=== PATIENT | male | born 1995 | race Caucasian/White ===

== ENCOUNTER 2024-07-21 17:11 | Inpatient (IN) | payer BC, OTHER ==
[~2024-07-21] VITALS: Ht 170.2 cm; Wt 99.8 kg
[2024-07-21 17:51] LABS: BASOPHILS # (AUTO) 0.1 K/UL (0.0-0.2); EOSINOPHILS # (AUTO) 0.2 K/uL (0.0-0.7); EOSINOPHILS % (AUTO) 2.7 % (0.0-7.0); HEMATOCRIT 48.5 % (36.7-47.1); HEMOGLOBIN 15.3 g/dL (12.5-16.3); LYMPHOCYTES # (AUTO) 2.2 K/uL (0.8-4.8); LYMPHOCYTES % (AUTO) 26.7 % (20.5-51.5); MEAN CORPUSCULAR HEMOGLOBIN 22.3 uug (23.8-33.4); MEAN CORPUSCULAR HGB CONC 32 g/dL (32.5-36.3); MEAN CORPUSCULAR VOLUME 70.8 fL (73.0-96.2); MONOCYTES # (AUTO) 0.7 K/uL (0.1-1.30); MONOCYTES % (AUTO) 8.7 % (0.0-11.0); NEUTROPHILS # (AUTO) 5.1 K/uL (1.8-8.9); NEUTROPHILS % (AUTO) 60.9 % (38.5-71.5); PLATELET COUNT (AUTO) 235 K/uL (152-348); RED CELL DISTRIBUTION WIDTH 16.8 % (12.1-16.2); WHITE BLOOD COUNT (AUTO) 8.3 K/uL (3.6-10.2)
[2024-07-21 17:55] LABS: RED BLOOD CELL COUNT(AUTO) 6.86 MIL/uL (4.06-5.63)
[2024-07-21] MEDS ORDERED: METO-357 PO (17:55)
[2024-07-21] MEDS: IV NORMAL SALINE 500 ML BAG IV ONE (17:57)
[2024-07-21 17:59] LABS: CALCIUM 9.5 mg/dL (8.5-10.1); CARBON DIOXIDE 24 mmol/L (21-32); CHLORIDE 107 mmol/L (98-107); GLUCOSE 111 mg/dL (74-106); POTASSIUM 3.8 mmol/L (3.5-5.1); SODIUM SERUM 143 mmol/L (136-145); UREA NITROGEN, BLOOD 12 mg/dL (7-18)
--- NOTE | 2024-07-21 18:01 | NUR ---
PT IS IN ROOM #1B. DR NIELSON EVALUATED THE PT.
[2024-07-21 18:13] LABS: ALANINE AMINOTRANSFERASE 43 U/L (16-63); ALBUMIN 3.6 g/dL (3.4-5.0); ALKALINE PHOSPHATASE 74 U/L (50-136); ASPARTATE AMINOTRANSFERASE 17 U/L (15-37); BILIRUBIN,DIRECT 0.1 mg/dL (0.0-0.2); BILIRUBIN,TOTAL 0.4 mg/dL (0.2-1.0); NT-PRO BNP 66 pg/mL (0-125); TOTAL PROTEIN, SERUM 7.4 g/dL (6.4-8.2)
[2024-07-21] MEDS ORDERED: LORAZEPAM 0.5 MG TABLET ONE (18:49)
[2024-07-21] MEDS ORDERED: HYDROMORPHONE 1 MG/1 ML DISP.SYRIN ONE (18:50)
[2024-07-21] MEDS: LORAZEPAM 0.5 MG TABLET PO ONE (18:56)
[2024-07-21] MEDS: HYDROMORPHONE 1 MG/1 ML DISP.SYRIN IV ONE (18:57)
--- NOTE | 2024-07-21 19:15 | NUR ---
REPORT RECIEVED FROM DALE HECTOR.
--- NOTE | 2024-07-21 20:10 | NUR ---
PT AMB TO BR WITH STEADY GAIT. URINE COLLECTED /SENT TO LAB.
--- NOTE | 2024-07-21 21:30 | NUR ---
REPORT GIVEN TO DALIA HECTOR.
--- NOTE | 2024-07-21 21:40 | NUR ---
Pt. admitted to TELE RM 314 , under care of Dr. JIMÉNEZ Belongs List completed
[2024-07-21] MEDS ORDERED: ONDANSETRON 4 MG/2 ML VIAL IV PRN (21:45)
[2024-07-21] MEDS ORDERED: ACETAMINOPHEN 325 MG TABLET PO PRN (21:45)
[2024-07-21] MEDS ORDERED: LORAZEPAM 0.5 MG TABLET PO PRN (21:45)
[2024-07-21] MEDS ORDERED: TEMAZEPAM 15 MG CAPSULE PO PRN (21:45)
[2024-07-21 22:15] VITALS: BP 114/72; TEMP 97.6; O2SAT 96
--- NOTE | 2024-07-21 22:51 | NUR ---
2146 Admitted patient in tele floor under the care of Dr Villatoro, patient alert oriented, no sob no chest pain, sinus rhythm on tele, patient implanted cardiac loop recorder from [facility], patient admitted due to cardiac arrythmia, no further arrythymia noted, oriented to call lights and to the room. cont to monitor.
[2024-07-22 04:03] VITALS: BP 97/58; TEMP 97.8; O2SAT 97
--- NOTE | 2024-07-22 06:51 | NUR ---
ASLEEP, NO SOB NO CHEST PAIN, NO COMPLAIN OF PAIN, SINUS RHYTHM SINUS ELYSE WHEN ASLEEP, CONT TO MONITOR.
[2024-07-22 07:03] LABS: BASOPHILS # (AUTO) 0.1 K/UL (0.0-0.2); BASOPHILS % (AUTO) 0.7 % (0.0-2.0); DIFFERENTIAL COMMENT 0; EOSINOPHILS # (AUTO) 0.3 K/uL (0.0-0.7); HEMATOCRIT 47.8 % (36.7-47.1); HEMOGLOBIN 15.1 g/dL (12.5-16.3); LYMPHOCYTES # (AUTO) 2.7 K/uL (0.8-4.8); LYMPHOCYTES % (AUTO) 31.9 % (20.5-51.5); MEAN CORPUSCULAR HEMOGLOBIN 22.5 uug (23.8-33.4); MEAN CORPUSCULAR HGB CONC 32 g/dL (32.5-36.3); MEAN CORPUSCULAR VOLUME 71.3 fL (73.0-96.2); MONOCYTES # (AUTO) 0.7 K/uL (0.1-1.30); MONOCYTES % (AUTO) 8.5 % (0.0-11.0); NEUTROPHILS # (AUTO) 4.7 K/uL (1.8-8.9); NEUTROPHILS % (AUTO) 55.9 % (38.5-71.5); PLATELET COUNT (AUTO) 223 K/uL (152-348); RED CELL DISTRIBUTION WIDTH 16.3 % (12.1-16.2); WHITE BLOOD COUNT (AUTO) 8.3 K/uL (3.6-10.2)
[2024-07-22] MEDS: PANTOPRAZOLE SODIUM 40 MG TABLET.DR PO SCH (07:07)
[2024-07-22 07:18] LABS: RED BLOOD CELL COUNT(AUTO) 6.69 MIL/uL (4.06-5.63)
[2024-07-22 07:36] VITALS: BP 122/78; TEMP 98.4; O2SAT 99
[2024-07-22 07:45] LABS: CALCIUM 8.7 mg/dL (8.5-10.1); CREATININE 0.9 mg/dL (0.6-1.3); MAGNESIUM 2.3 mg/dL (1.8-2.4); PHOSPHOROUS 4.2 mg/dL (2.5-4.9); POTASSIUM 4.1 mmol/L (3.5-5.1)
--- NOTE | 2024-07-22 08:00 | NUR ---
RECEIVED PATIENT IN BED AWAKE ALERT AND ORIENTED X3 DENIES PAIN OR SOB. SR ON MONITOR. SEEN BY DR WEEMS SEE NOTES. WILL CONTINUE TELE MONITORING
[2024-07-22] MEDS: METOPROLOL SUCCINATE XL 50 MG TAB.SR.24H PO SCH (08:06)
[2024-07-22] MEDS ORDERED: PANT40TA49 PO (09:18)
[2024-07-22] MEDS ORDERED: METO50TA16 PO (09:20)
[2024-07-22 09:57] LABS: THYROID STIMULATING HORMONE 2.325 mIU/mL (0.358-3.740)
[2024-07-22 11:00] VITALS: BP 112/75; TEMP 98.2; O2SAT 99
[2024-07-22 11:47] LABS: ANISOCYTOSIS 1+; EOSINOPHILS % (MANUAL) 1 % (0-8); HYPOCHROMASIA 1+; LYMPHOCYTES % (MANUAL) 27 % (20-40); MONOCYTES % (MANUAL) 10 % (2-10); NEUTROPHILS % (MANUAL) 62 % (42-75); PLATELET ESTIMATE ADEQUATE
--- NOTE | 2024-07-22 12:00 | NUR ---
SEEN BY DR NAJERA SEE NOTES. PLAN DC TODAY PENDING INTERROGATION RESULTS
[2024-07-22 15:12] VITALS: BP 113/66; TEMP 98; O2SAT 97
--- NOTE | 2024-07-22 17:45 | NUR ---
With discharge order to home. Saline lock removed. Tele removed. DC instruction given, verbalized understanding. Went home per ambulatory per patient's request, in fair condition, not in distress, afebrile.
== END 2024-07-22 17:45 | disposition home or self-care (01) | DRG 310 ==
LOC: ER 17:14 → TELE3 20:42
PROVIDERS: ADMIT Internal Medicine; ATTEND Internal Medicine
DX: I49.8 Other specified cardiac arrhythmias (principal); R00.0 Tachycardia, unspecified; I45.6 Pre-excitation syndrome; E66.9 Obesity, unspecified; Z68.34 Body mass index [BMI] 34.0-34.9, adult; D50.9 Iron deficiency anemia, unspecified; Z88.6 Allergy status to analgesic agent; Z83.3 Family history of diabetes mellitus; Z95.818 Presence of other cardiac implants and grafts
CPT/HCPCS: 36415; 70030-TC; 71045; 83550; 83735; 84100; 84443; 84484; 85025; 93005; A4606; A4663; G0378; J1170; J7040